=== PATIENT | male | born 1975 | race Caucasian/White ===

== ENCOUNTER 2016-04-08 10:40 | Emergency (ER) | payer OTHER ==
[2016-04-08 11:20] VITALS: BP 146/77; PULSE 74; RESP 18; TEMP 98.8; O2SAT 96
--- NOTE | 2016-04-08 12:03 | UCPHY ---
[id number]/04/24 11:50 HPI/ROS: CHIEF COMPLAINT: Scalp laceration HISTORY OF PRESENT ILLNESS: 40-year-old male arrives via private vehicle to the Urgent Care, no anticoagulant use, stating that approximately 1:00 a.m. today he jumped from a chair and impacted the vertex of his head against the ceiling sustaining a flap laceration. This was not a direct axial load of his cervical spine as he was jumping forward. Positive alcohol use at time of incident. He woke this morning complaining of laceration and bilateral paraspinous neck pain with no midline pain. No peripheral paresthesia, weakness , numbness. No amnesia. Tetanus up-to-date. Visiting from [place] returning in 1 days. Denies: Nausea, vomiting, headache, chest pain, back pain , abdominal pain, amnesia PRIMARY CARE PROVIDER: REVIEW OF SYSTEMS: A ten point review of systems was performed and is negative with the exception of the items mentioned in the HPI PAST MEDICAL/SURGICAL HISTORY: no anticoagulant use, no relevant medical/ surgical history SOCIAL HISTORY: denies alcohol use at time of incident PHYSICAL EXAM 1) GENERAL: Well-developed, well-nourished, alert and oriented. Appears to be in no acute distress. Answering questions appropriately. 2) HEAD: Normocephalic, 4 cm flap laceration vertex of scalp. No hematoma. No depression. No galea defects 3) HEENT: Pupils equal, round, reactive to light bilaterally. Negative Horners. Nasopharynx, oropharynx, clear. No deformity or angulation of nose. No septal hematoma. No rhinorrhea. No oral trauma. Ears bilaterally with normal tympanic membranes. No hemotympanum. No fluid or blood in the external auditory canal. No raccoon eyes. No Maynard sign. Teeth are normally aligned with no gross malocclusion, TMJ bilaterally nontender, facial bones nontender including the zygomatic arch, maxilla mandible. 4) NECK: Cervical collar is on.Cervical collar is removed while holding inline traction and patient has no complaints of midline cervical pain, no effusion noted, trachea midline, no JVD. Cervical collar removed. 5) LUNGS: Clear to auscultation bilaterally, no wheezes, no rhonchi, no retractions. No obvious signs of trauma. No chest wall pain. No flaring, no grunting. Moving symmetrically. No crepitus. 6) HEART: Regular rate and rhythm, 7) ABDOMEN: No guarding, no rebound, no focal tenderness, no peritoneal signs, no signs of trauma, no ecchymosis 8) MUSCULOSKELETAL: Moving all extremities, no focal areas of tenderness, no obvious trauma. 9) BACK: No midline vertebral tenderness, no fluctuance, no step-off, no obvious trauma, no visual or palpable abnormality. 10) SKIN: scalp laceration NEURO: GCS 15. Awake, alert, and oriented to person, place and time. Answers questions appropriately. There were no obvious focal neurologic abnormalities. No cerebellar dysfunction. Normal steady gait. Upper and lower extremities bilaterally with strength 5 / 5, reflexes 2+. DIFFERENTIAL DIAGNOSIS: [ Not necessarily in any particular order, my differential diagnosis includes, but is not limited to, concussion, skull fracture, intraparenchymal contusion, subarachnoid, subdural and epidural hematoma. The patient understands that this diagnosis is provisional and can never be 100% accurate. (Meño Nesbitt) Constitutional: Initial Vital Signs Temperature (C) 37.1 C 04/08/16 11:15 Heart Rate 74 04/08/16 11:15 Respiratory Rate 18 04/08/16 11:15 Blood Pressure 146/77 H 04/08/16 11:15 O2 Sat (%) 96 04/08/16 11:15 O2 Delivery Mode Room Air Allergies/Adverse Reactions: No Known Allergies Allergy (Unverified 04/08/16 11:14) Home Medications: Medication Instructions Recorded Cephalexin [Keflex] 500 mg PO QID 5 Days 04/08/16 MDM/Departure - [facility] Procedures: Procedure: Laceration repair. I explained the indications, risks and benefits for both laceration repair and anesthetic administration. Verbal consent was obtained from the patient . The laceration on the vertex of scalp was anesthetized using 0.5% bupivicaine with epinephrine . After anesthetic administered the patient was observed for a period of time and had no apparent adverse effects. The wound was cleaned, prepped, draped in normal sterile fashion and explored to its base. No foreign body seen, no foreign bodies palpated. There were no deep structures involved. No galea defects identified The wound was repaired with 9 alvino. The wound repair was simple. The procedure was performed by myself. Patient has been informed that scarring will occur, although efforts have been made to minimize this. (Meño Nesbitt) ED Course/Re-evaluation: Patient has negative Crouse head injury and Crouse C-spine decision-making tools. Skin re-evaluated with serial exams. He has a nonfocal neurologic exam. GCS 15. Offered Percocet or other opiate prescription which he declines. I do not think that imaging of the head and/or C-spine currently indicated as I have a low pretest index suspicion for intracranial hemorrhage, skull fracture , cervical fracture or subluxation. Explained this to the patient and he is in agreement. (Meño Nesbitt) The patient was evaluated and managed by the physician tax accounting assistant. I have reviewed this chart and I agree with the findings and plan of care as documented , as indicated by my signature. I am the secondary supervising physician. ( Marilynn Hernandez) - Depart Disposition: Home, Routine, Self-Care Clinical Impression: Head injury due to trauma Qualifiers: Encounter type: initial encounter Qualifier Code: (S09.90XA) Unspecified injury of head, initial encounter Laceration of scalp Qualifiers: Encounter type: initial encounter Qualifier Code: (S01.01XA) Laceration without foreign body of scalp, initial encounter Cervical strain Qualifiers: Encounter type: initial encounter Qualifier Code: (S16.1XXA) Strain of muscle, fascia and tendon at neck level, initial encounter Condition: Good Instructions: Head Injury (ED), Laceration (ED), Neck Pain (ED), Cervical Strain (ED) Additional Instructions: Your alvino made removed in 7 days ALTHOUGH THERE IS NO EVIDENCE OF SERIOUS HEAD INJURY AT THIS TIME, DELAYED SIGNS CAN APPEAR 24 TO 48 HOURS AFTER INJURY. WE RECOMMEND THAT YOU DESIGNATE A FRIEND OR FAMILY MEMBER TO OBSERVE YOU OVER THE NEXT FEW DAYS TO ENSURE THAT YOUR CONDITION IS PROGRESSING NORMALLY. PLEASE RETURN TO THE EMERGENCY DEPARTMENT (ED) IMMEDIATELY IF YOU HAVE INCREASED HEADACHE, PERSISTENT HEADACHE , VOMITING, WEAKNESS, CONFUSION OR VISUAL PROBLEMS. WE RECOMMEND THAT YOU DO NOT RESUME CONTACT SPORTS OR ACTIVITIES THAT TAKE COORDINATION OR BALANCE SUCH SKIING OR RIDING A BICYCLE UNTIL CLEARED TO DO SO BY YOUR DOCTOR OR BY A NEUROLOGIST. Go to the ER immediately if you experience new or worsening neck pain, dizziness, visual disturbance, double vision, lightheadedness, facial droop, or any other symptoms that concern you. Avoid deep tissue massage and chiropractic manipulation, until symptom-free, and cleared by your regular health care provider. Prescriptions: Cephalexin [Keflex] 500 mg PO QID 5 Days Referrals: Follow-up, with your primary care provider in 7 days [Other] - As per Instructions - PQRS PQRS Measurement: n/a (Meño Nesbitt)
== END 2016-04-08 12:54 | disposition home or self-care (01) ==
LOC: CED 10:40
PROC: 0HQ0XZZ Repair Scalp Skin, External Approach (ICD-10-PCS; principal; 2016-04-08)
DX: S01.01XA Laceration without foreign body of scalp, initial encounter (principal); S16.1XXA Strain of muscle, fascia and tendon at neck level, initial encounter; W22.8XXA Striking against or struck by other objects, initial encounter
CPT/HCPCS: 12002-PO; 99214-PO; G0463-PO